=== PATIENT | female | born 1975 | race Caucasian/White ===

== ENCOUNTER 2018-12-20 11:36 | Emergency (ER) | payer MEDICAID ==
[2018-12-20] MEDS: KETOROLAC 60 MG INJ IM (12:42)
[2018-12-20] MEDS: DEXAMETHASONE 10 MG/ML 1 ML INJ IM (12:42)
== END 2018-12-20 13:34 | disposition home or self-care (01) ==
LOC: FTE 11:36
DX: K08.89 Other specified disorders of teeth and supporting structures (principal); M25.561 Pain in right knee; M25.562 Pain in left knee; J45.909 Unspecified asthma, uncomplicated
CPT/HCPCS: 73562; 73562-50; 81025; 96372; 99284-25